=== PATIENT | male | born 1960 | race Caucasian/White ===

== ENCOUNTER 2018-09-14 09:26 | Emergency (ER) | payer OTHER ==
[~2018-09-14] VITALS: Ht 160 cm; Wt 88.9 kg
--- NOTE | 2018-09-14 09:30 | NUR ---
PT AMBULATES TO BED 6
[2018-09-14 09:38] VITALS: BP 157/89
[2018-09-14] MEDS ORDERED: LOSA50TA66 PO (09:45)
--- NOTE | 2018-09-14 09:45 | NUR ---
PER PATIENT,BEEN FEELING DIZZY SINCE THURSDAY.DENIES VOMITING,DENIES HEADACHE. SEEN PRIMARY DOCTOR YESTERDAY WITH PRESCRIPTION OF [place],TOOK ONE THIS MORNING. NO DISTRESS. AT BEDSIDE. CONTINUE TO MONITOR
--- NOTE | 2018-09-14 10:14 | NUR ---
S/W LUKASZ FROM RADIOLOGY INFORMING HER OF DR RODRIGUEZ CALLING CODE BRAIN FOR PT, SHE SAID SHE WILL INFORM CT
--- NOTE | 2018-09-14 10:14 | NUR ---
Patient being evaluated by physician at bedside.
--- NOTE | 2018-09-14 10:18 | NUR ---
PT TAKEN TO CT VIA [facility] WITH RN MARIANO AND EMT LIDIA
--- NOTE | 2018-09-14 10:27 | NUR ---
PT RETURNED FROM CT
--- NOTE | 2018-09-14 10:28 | NUR ---
PATIENT AWAKE ALERT ORIENTED. SPEECH CLEAR.DENIES NAUSEA. NO WEAKNESS TO EXTREMITIES. CONTINUE TO MONITOR
--- NOTE | 2018-09-14 10:44 | NUR ---
XRAY AT BEDSIDE
[2018-09-14 11:01] LABS: BASOPHILS # (AUTO) 0.1 K/uL (0.00-0.22); BASOPHILS % (AUTO) 0.9 % (0.0-2.0); EOSINOPHILS # (AUTO) 0.1 K/uL (0-0.4); EOSINOPHILS % (AUTO) 1.5 % (0.0-4.0); HEMATOCRIT 47.5 % (36-52); HEMOGLOBIN 15.7 g/dL (12.0-18.0); LYMPHOCYTES % (AUTO) 31.4 % (20.5-51.1); MEAN CORPUSCULAR HEMOGLOBIN 28 pg (27-31); MEAN CORPUSCULAR HGB CONC 33 g/dL (33-37); MEAN CORPUSCULAR VOLUME 85.5 fL (80-94); MONOCYTES # (AUTO) 0.5 K/uL (0.8-1.0); NEUTROPHILS # (AUTO) 3.6 K/uL (1.8-7.7); NEUTROPHILS % (AUTO) 58.2 % (42.2-75.2); PLATELET COUNT (AUTO) 197 K/uL (140-450); RED BLOOD CELL COUNT(AUTO) 5.55 MIL/uL (4.20-6.10); RED CELL DISTRIBUTION WIDTH 13.7 % (11.6-13.7); WHITE BLOOD COUNT (AUTO) 6.2 K/uL (4.8-10.8)
--- NOTE | 2018-09-14 11:10 | NUR ---
LESS DIZZY PER PATIENT. FAMILY AT BEDSIDE
[2018-09-14 11:16] LABS: ANION GAP 12.7 (8-16); POTASSIUM 3.7 mmol/L (3.5-5.1)
[2018-09-14 11:17] LABS: ALBUMIN 3.8 g/dL (3.4-5.0); CREATININE 0.8 mg/dL (0.7-1.3); TOTAL BILIRUBIN 0.7 mg/dL (0.0-1.0)
--- NOTE | 2018-09-14 11:30 | NUR ---
DR. LFORES REVIEWED CT. RESULTS
[2018-09-14 11:35] LABS: PROTHROMBIN TIME 9.7 secs (10.8-13.4)
--- NOTE | 2018-09-14 11:40 | NUR ---
AWAITING FOR DISPOSITION
--- NOTE | 2018-09-14 12:18 | NUR ---
DR. FLORES TALKING TO PATIENT AND FAMILY AT BEDSIDE
[2018-09-14 13:22] LABS: APPEARANCE,URINE CLEAR (CLEAR); BILIRUBIN,URINE NEGATIVE (NEGATIVE); BLOOD, URINE NEGATIVE (NEGATIVE); COLOR,URINE YELLOW (YELLOW); LEUKOCYTE ESTERASE ,URINE NEGATIVE (NEGATIVE); NITRITE, URINE NEGATIVE (NEGATIVE); PH,URINE 6.5 (5.0-9.0); UGLUCOSE NEGATIVE (NEGATIVE)
--- NOTE | 2018-09-14 13:55 | NUR ---
STILL AWAITING FOR PLACEMENT. PATIENT AND FAMILY AWARE
--- NOTE | 2018-09-14 13:56 | NUR ---
DENIES DISCOMFORT/DIZZINESS.FEELING MUCH BETTER PER PATIENT
--- NOTE | 2018-09-14 14:30 | NUR ---
REPORT GIVEN TO MARIAH
--- NOTE | 2018-09-14 14:43 | NUR ---
TOLERATED LUNCH. NO NAUSEA/VOMITING. CONTINUE TO MONITOR
--- NOTE | 2018-09-14 15:00 | NUR ---
PT ON BED IN SUPINE POSITION, BED IN LOW POSITION, A/OX4, NO CHANGES IN MENTAL STATUS NOTED. FULL MONITOR ON, BED IN LOW POSITION, DENIES PAIN AT THIS TIME.
--- NOTE | 2018-09-14 16:46 | NUR ---
FAMILY STILL AT BEDSIDE.PATIENT DENIES DISCOMFORT. STILL AWaiting for transfer.
--- NOTE | 2018-09-14 18:55 | NUR ---
TRANSPORT CALLED, ETA IS [id number].
--- NOTE | 2018-09-14 19:00 | NUR ---
PT ON BED IN SUPINE POSITION, BED IN LOW POSITION, A/OX4, NO CHANGES IN MENTAL STATUS NOTED. FULL MONITOR ON, BED IN LOW POSITION, DENIES PAIN AT THIS TIME
--- NOTE | 2018-09-14 20:28 | NUR ---
Patient to be transferred to [facility]. Is being transferred due to NEEDING HIGHER LEVEL OF CARE, DR. JOHNSON ACCEPTING PHYSICIAN. Receiving facility has accepting physician and available space. ER physician has signed transfer form. Patient or responsible republican has agreed to transfer and signed form. Patient belongings inventoried and will be sent with patient. Copy of nursing notes, lab reports, EKG, Physicians Orders and X-rays to be sent with patient. Report called to CARIN LANZA at receiving facility. [facility] ambulance service has been called for transfer. ETA is [id number].
[2018-09-14 22:15] VITALS: BP 138/71
--- NOTE | 2018-09-14 22:15 | NUR ---
Patient Transfer to outside Facility [facility], report given to Pedrito BORGES from [facility]. [facility] and made aware [facility] is en route. Patient left in stable condition with chart and transfer form filled out.
== END 2018-09-14 22:15 | disposition short-term general hospital (02) ==
LOC: MED 09:26
DX: H49.9 Unspecified paralytic strabismus (principal); I10 Essential (primary) hypertension; Z79.899 Other long term (current) drug therapy
CPT/HCPCS: 36415; 70450; 70480; 71045; 80053; 81003; 84484; 85025; 85610; 85730; 93005; 99285; Q0092